=== PATIENT | female | born 1985 | race American Indian/Alaskan Native ===

== ENCOUNTER 2017-08-23 16:53 | Emergency (ER) | payer MEDICAID ==
[~2017-08-23] VITALS: Ht 162.6 cm; Wt 64.0 kg
[2017-08-23] MEDS ORDERED: METHYLPREDNISOLONE SOD SUCC 125 MG/2 ML VIAL IV STA (17:38)
[2017-08-23] MEDS ORDERED: DIPHENHYDRAMINE 50MG/ML VIAL IV ONE (17:45)
[2017-08-23] MEDS ORDERED: FAMOTIDINE 20MG/2ML VIAL IV ONE (17:45)
[2017-08-23 22:43] VITALS: BP 112/85
== END 2017-08-23 23:10 | disposition home or self-care (01) ==
LOC: ER 17:31
DX: T41.3X5A Adverse effect of local anesthetics, initial encounter (principal); Z88.4 Allergy status to anesthetic agent; Y92.531 Health care provider office as the place of occurrence of the external cause
CPT/HCPCS: 96374; 96375; 99284; J1200; J2930; J3490